=== PATIENT | female | born 1955 | race Caucasian/White ===

== ENCOUNTER 2019-11-02 12:15 | Outpatient (CLI) | payer BC ==
--- NOTE | 2019-11-02 13:52 | MRI ---
MRI CERVICAL SPINE WITHOUT CONTRAST: 11/02/19 INDICATIONS: Cervical spinal stenosis. Cervical pain. FINDINGS: Cervical vertebrae maintain normal height and alignment. Cervical vertebral body signal is normal. Th ere are degenerative disc changes at all levels with mild loss of disc space throughout the cervical spine. Small anterior osteophytes in the cervical vertebrae. Posterior spondylosis at all levels as d escribed below. C2-3: Minimal disc bulge and spondylosis. No significant abnormality. C3-4: Posterior disc bulge and spondylosis flatten the thecal sac and efface the anterior subarachnoi d space. No cord impingement. Mild bilateral foraminal narrowing, slightly more pronounced on the rig ht. C4-5: Disc bulge and spondylosis that flatten the thecal sac and efface the anterior subarachnoid spa ce. No cord impingement or central canal stenosis. Mild left foraminal narrowing due to facet and unc inate hypertrophy. C5-6: Disc bulge and spondylosis is slightly more prominent. These changes abut the anterior cord at this level. Mild right foraminal encroachment due to facet and uncinate hypertrophy. C6-7: Slight anterolisthesis. Posterior disc bulge and spondylosis flatten the thecal sac and efface the anterior subarachnoid space. No cord impingement or central canal stenosis. No evidence of signif icant foraminal stenosis. C7-T1: Mild anterolisthesis. Posterior disc bulge and spondylosis flatten the thecal sac and efface the anterior subarachnoid space. No cord impingement. No central canal or foraminal stenosis. Cervical cord signal appears normally maintained. IMPRESSION: Posterior disc bulge and spondylitic changes are seen throughout as described above. Findings are mor e pronounced at C5-6 where they impinge on the anterior cord. Mild foraminal encroachment is seen as described above. POS: AH
--- NOTE | 2019-11-02 14:16 | MRI ---
MRI thoracic spine noncontrast: 11/02/2019 HISTORY: 63 year old female with mid back pain COMPARISON: None FINDINGS: There is an at least mild lateral curvature. Vertebral body heights are maintained. No major bone marrow signal abnormality. Thoracic spinal cord is normal in caliber. No syringohydromyelia. Scattered hyperintense intramedullary signal on T2 WI seen. Most of these probably represent artifact, unless the patient has myelopathy. At lower T9 and T9-10 level, 2 tiny bilateral paracentral foci of hyperintense signal on axial T2 WI (axial image 30 of 45, series 8). No high-grade central spinal canal stenosis, extrinsic cord impingement, nerve root impingement, or h igh-grade neural foraminal stenosis, at any level. Left-sided hemangioma of bone at T4 vertebral body. Mild disc space narrowing at several levels in mid thoracic spine. Small central disc protrusions at T7-8, T8-9, and T9-T10. Small left-central disc protrusion at T10-11 approaching left ventral cord surface. Additional tiny Disc protrusions scattered elsewhere at other levels. No pathology of perivertebral spaces identified. IMPRESSION: 1.) Mild thoracic spondylosis and mild lateral curvature. 2) bilateral paracentral tiny apparent intramedullary signal abnormalities at T9: Tiny cortical infar ctions of indeterminate age versus artifact.
== END 2019-11-02 12:16 | disposition home or self-care (01) ==
LOC: BICMRI 12:15
PROVIDERS: ATTEND Anesthesiology Pain Medicine
DX: M48.02 Spinal stenosis, cervical region (principal); M48.04 Spinal stenosis, thoracic region
CPT/HCPCS: 72141; 72146

== ENCOUNTER 2020-06-11 17:39 | Inpatient (IN) | payer BC ==
[~2020-06-11 17:39] MED LIST: Heparin 10,000 UNITS/ 10 ML VIAL ONE; Iopamidol 370 76% 100 ML VIAL ONE; Sodium Chloride 0.9% 1,000 ML BAG ONE
--- NOTE | 2020-06-11 18:10 | RAD ---
Exam: Chest one view HISTORY:Chest pain Comparison: 12/09/2008 FINDINGS: Cardiac silhouette: Normal Aorta: Unremarkable Pulmonary vessels: Normal Costophrenic angles: Clear LUNGS: No masses or consolidation. Pneumothorax: None Osseous abnormalities: None IMPRESSION: No acute cardiopulmonary process.
[2020-06-11 18:38] LABS: #Basophils 0.1 thou/uL (0.0-0.2); #Eosinphils 0.1 thou/uL (0.0-0.7); #Lymphocytes 2.8 thou/uL (1.20-3.40); #Monocytes 0.8 thou/uL (0.11-0.59); #Neutrophils 6.8 thou/uL (1.40-6.50); %Eosinophils 1.3 % (0.0-10.0); %Lymphocytes 26.2 % (21.0-51.0); %Monocytes 7.7 % (0.0-10.0); %Neutrophils 63.7 % (42.0-75.0); Mean Corpuscular HGB CONC 34.7 g/dL (32.0-36.0); Mean Corpuscular Hemoglobin 30.9 pg (27.0-31.0); Mean Corpuscular Volume 89.1 fL (78.0-98.0); Mean Platelet Volume 7.6 fL (7.4-10.4); Platelet Count 314 thou/uL (130-400); RBC Distribution Width 12.1 % (11.5-14.5); Red Blood Cell (RBC) Count 3.55 mill/uL (4.20-5.40); White Blood Cell (WBC) Count 10.7 thou/uL (4.8-10.8)
[2020-06-11 18:55] LABS: ALT (SGPT) 17 U/L (8-55); AST (SGOT) 45 U/L (5-34); Albumin 3.9 g/dL (3.4-4.8); Alkaline Phosphatase 86 U/L (40-110); Anion Gap 10 mmol/L (10-20); BUN (Urea Nitrogen) 12 mg/dL (9.8-20.1); Bilirubin, Total 0.3 mg/dL (0.2-1.2); Calc. Creatinine Clearance 0 mL/min (70-130); Calcium 8.5 mg/dL (7.8-10.44); Carbon Dioxide 24 mmol/L (23-31); Chloride 108 mmol/L (98-107); Glucose 88 mg/dL (80-115); Lipase 31 U/L (8-78); Potassium 3.4 mmol/L (3.5-5.1); Protein, Total 6.9 g/dL (5.8-8.1); Sodium 139 mmol/L (136-145)
[2020-06-11] MEDS ORDERED: Aspirin Chewable 81 MG TAB ONE (19:28)
[2020-06-11] MEDS ORDERED: Nitroglycerin 0.4 MG TAB 1 EACH ONE (19:28)
[2020-06-11 19:30] LABS: CKMB 27.9 ng/mL (0-6.6)
[2020-06-11] MEDS ORDERED: Lidocaine 1% (PF) 30 ML VIAL ONE (19:51)
[2020-06-11 19:54] LABS: Prothrombin Time 13.1 sec (12.0-14.7)
[2020-06-11] MEDS ORDERED: Midazolam HCl 2 mg/2 ml Vial ONE (20:11)
[2020-06-11] MEDS ORDERED: Fentanyl 100 MCG/2 ML VIAL ONE (20:11)
[2020-06-11] MEDS ORDERED: Morphine 2 MG/ML VIAL SLOW IVP PRN (20:36)
[2020-06-11] MEDS ORDERED: cloNIDine 0.1 MG TAB PO PRN (20:36)
[2020-06-11] MEDS ORDERED: traMADol HCl 50 MG TAB PO PRN (20:36)
[2020-06-11] MEDS ORDERED: Milk Of Magnesia 30 ML UDCUP PO PRN (20:36)
[2020-06-11] MEDS ORDERED: Mag-Al 1200 mg/1200 mg/30 ML UDCUP PO PRN (20:36)
[2020-06-11] MEDS ORDERED: Zolpidem Tartrate 5 MG TAB PO PRN (20:36)
[2020-06-11] MEDS ORDERED: Clopidogrel Bisulfate 300 MG TAB PO SCH (21:00)
[2020-06-11] MEDS ORDERED: Potassium Chloride 20 MEQ TAB PO SCH (21:15)
[2020-06-11] MEDS ORDERED: Sodium Chloride 0.9% 500 ML IV SCH (21:15)
[2020-06-11] MEDS: Nitroglycerin 0.4 MG TAB (25 Tab Bottle) SL PRN ×2 (21:18→21:23)
--- NOTE | 2020-06-11 21:19 | HP ---
CHIEF COMPLAINT: Chest pain. HISTORY OF PRESENT ILLNESS: Ms. Gonzalez is a pleasant 64-year-old white female, who comes to the hospital for chest pain. She started having chest pain yesterday at 4 p.m. She hoped that it would just go away as she has had reflux in the past and it just would not go away, kept going. She decided to go to sleep yesterday hoping that it was going to get better. When she woke up, she continued to have chest pain throughout the day, decided to come into the ER this evening. Initial EKG was unremarkable, but she continued to have ongoing chest pain, so a troponin was drawn and it was at 7, so Cardiology was called immediately. On my evaluation, Ms. Gonzalez continued to have chest pain, so she was taken emergently to the catheterization lab. She was found to have an occluded distal first OM. The first OM was decent size initially, but at the level of the obstruction, it was a very small artery, probably 1 to 1.5 mm and this was left alone. At the time of the image during the catheterization, Mrs. Gonzalez was already chest pain free and was a lot better. Her blood pressure initially was in the 190s over 100s in the ER. Once the chest pain got better, she was down to the 160s over 80s. She is now pain free and on the way up to be admitted to the telemetry floor. PAST MEDICAL HISTORY: 1. Glaucoma. 2. Migraine headaches. 3. Anxiety and depression. 4. Hypertension, not treated. PAST SURGICAL HISTORY: 1. Gastric bypass, she has lost about 55 pounds. 2. x2 in the past. 3. Hysterectomy. 4. Cataract surgery in the right eye last week, she was scheduled to have cataract surgery in left eye. 5. Breast reduction and lift after gastric bypass and weight loss. 6. Abdominal skin removal after gastric bypass. OUTPATIENT MEDICATIONS: 1. Citalopram 40 mg a day. 2. Estradiol 2 mg a day. 3. Topiramate 50 mg a day. 4. Ophthalmic prednisolone. ALLERGIES: MACROBID. SOCIAL HISTORY: Smoked as a teenager, but none for many many years. Social alcohol use. Used marijuana as a teenager as well. Nothing in the recent past. FAMILY HISTORY: Noncontributory. REVIEW OF SYSTEMS: A 12-point review of systems was done and was found to be negative other than stated in the history of present illness. PHYSICAL EXAMINATION: VITAL SIGNS: Temperature 97.2, pulse 80, respiratory rate 18, saturating 98% on room air, blood pressure 158/72. GENERAL: Awake, alert, and oriented x3, in no distress. HEENT: Normocephalic and atraumatic. NECK: Supple. LUNGS: Clear. CARDIOVASCULAR: S1, S2. No S3 or S4. No murmurs or rubs. ABDOMEN: Soft. Positive bowel sounds. EXTREMITIES: No edema. SKIN: Warm and dry. LABORATORY DATA: Laboratory work was reviewed. White count of 10, hemoglobin 11, hematocrit 31, platelet count of 214. Coags were normal. Chemistry with a sodium of 139, potassium 3.4, chloride 108, carbon dioxide 24, anion gap of 10, BUN of 12, creatinine 1.4 with GFR of 37, glucose of 88. CK-MB on admission was 27 and troponin was 7.5, albumin of 3.9, lipase of 31. EKG was reviewed. Nonspecific ST changes in the inferior leads. Chest x-ray was reviewed. ASSESSMENT AND PLAN: 1. Ejk-[id number] myocardial infarction. 2. Ongoing chest pain. 3. Hypertension, untreated. 4. Glaucoma. PLAN: 1. Heart catheterization showed an occluded OM1 distally, very small vessel at the distal level, too small for intervention. We will treat this medically. We will keep her on full anticoagulation with Lovenox subcu, the first dose to be given 2 hours after hemostasis which was at 8:30, so first dose between 10:30 and 11 and then b.i.d. for 48 hours. 2. Echocardiogram to be done tomorrow. 3. We will start on Plavix and aspirin for dual antiplatelet therapy. 4. We will start statin, beta racheal, and XANDER inhibitor. 5. PPI for stress ulcer prophylaxis. 6. Already on full-dose Lovenox for DVT prophylaxis. 7. COVID PCR will be sent. 8. Full code. 9. Disposition, pending clinical evolution. Job ID: [id number]
[2020-06-11] MEDS: Acetaminophen/Codeine 30-300mg Tablet PO PRN (21:29)
[2020-06-11 22:30] VITALS: BMI 26.3
[2020-06-11 22:55] LABS: CKMB 20.4 ng/mL (0-6.6); Critical Call CKMB RESULT DECREASING
--- NOTE | 2020-06-11 22:55 | PDOC.HHP ---
Hospitalist RENETTA Chest pain History of Present Illness: This is a 64-year-old female patient with a history of hypertension who presents to the ED on account of chest pain. Patient notes having had chest pain 2 days ago prior to going to bed which persisted when she woke up from bed. With persistence of pain she came to the ED for further evaluation. Pain was about 10/10 intensity initially mainly on the left side nonradiating. Associated with diuresis and worsened with activity. She denied any shortness of breath or palpitations. On presentation blood pressure was 173/92, pulse 70, respiration 19, temperature 98.4 and saturating 99 on room air. Labs showed hemoglobin of 11.0 potassium 3.4, creatinine 1.44 and troponin was elevated at 7.56. Chest x-ray showed no acute cardiopulmonary process. Cardiology was consulted patient was sent to the [facility] and was noted to have 2 small vessel disease too small for intervention. Decision was made to treat conservatively on anticoagulation with Lovenox. Allergies/Adverse Reactions: Allergy/AdvReac Type Severity Reaction Status Date / Time nitrofurantoin Allergy Verified 06/11/20 21:43 [From Macrobid] Home Medications: Medication Instructions Recorded Confirmed Type Citalopram [CeleXA] 40 mg PO DAILY 06/11/20 06/11/20 History Estradiol 2 mg PO DAILY 06/11/20 06/11/20 History Levothyroxine Sodium [Euthyrox] 50 mcg PO DAILY 06/11/20 06/11/20 History Topiramate 50 mg PO DAILY 06/11/20 06/11/20 History prednisoLONE Acetate [Econopred 1 drop R EYE ASDIR 06/11/20 06/11/20 History Plus 1% Opth Susp] Past History: Past medical history: Hypertension, anxiety and depression, migraines, glaucoma Past surgical history: Gastric bypass, section, hysterectomy, cataract surgery, breast reduction Family history: Diabetes mellitus Social history: Denies alcohol use, smoking or illicit drug use. Hospitalist RENETTA CARBALLO Constitutional: denies: fever, chills, sweats, weakness, malaise Respiratory: denies: cough, shortness of breath, hemoptysis Cardiovascular: reports: chest pain, orthopnea, edema. denies: palpitations Gastrointestinal: denies: nausea, vomiting, abdominal pain, constipation Genitourinary: denies: dysuria, frequency, incontinence Neurological: denies: weakness, numbness, incoordination, change in speech All other systems reviewed; all pertinent +/- noted in HPI/Subj Hospitalist Exam Vitals: Vital Signs (12 hours) Temp Pulse Resp BP Pulse Ox 06/11/20 20:15 98.1 F 61 18 186/81 H 100 Weight Weight 153 lb 3.2 oz General Appearance: awake alert General - other findings: In no acute distress Eye: PERRL, anicteric sclera ENT: normocephalic atraumatic Heart: RRR, no murmur, no gallops, no rubs Respiratory: CTAB, no wheezes, no rales, no ronchi Gastrointestinal: soft, non-tender, non-distended, normal bowel sounds Extremities: no cyanosis, no clubbing, no edema Neurological: cranial nerve grossly intact, no weakness, no focal deficits Musculoskeletal: normal tone, normal strength Psychiatric: normal affect, normal behavior, A&O x 3 Hospitalist Results Result Diagrams: 06/12/20 02:22 06/12/20 02:22 Lab results: Laboratory Last Values WBC 10.7 thou/uL (4.8-10.8) 06/11/20 18:18 RBC 3.55 mill/uL (4.20-5.40) L 06/11/20 18:18 Hgb 11.0 g/dL (12.0-16.0) L 06/11/20 18:18 Hct 31.6 % (36.0-47.0) L 06/11/20 18:18 MCV 89.1 fL (78.0-98.0) 06/11/20 18:18 MCH 30.9 pg (27.0-31.0) 06/11/20 18:18 MCHC 34.7 g/dL (32.0-36.0) 06/11/20 18:18 RDW 12.1 % (11.5-14.5) 06/11/20 18:18 Plt Count 314 thou/uL (130-400) 06/11/20 18:18 MPV 7.6 fL (7.4-10.4) 06/11/20 18:18 Neutrophils % 63.7 % (42.0-75.0) 06/11/20 18:18 Lymphocytes % 26.2 % (21.0-51.0) 06/11/20 18:18 Monocytes % 7.7 % (0.0-10.0) 06/11/20 18:18 Eosinophils % 1.3 % (0.0-10.0) 06/11/20 18:18 Basophils % 1.0 % (0.0-1.0) 06/11/20 18:18 Neutrophils # 6.8 thou/uL (1.40-6.50) H 06/11/20 18:18 Lymphocytes # 2.8 thou/uL (1.20-3.40) 06/11/20 18:18 Monocytes # 0.8 thou/uL (0.11-0.59) H 06/11/20 18:18 Eosinophils # 0.1 thou/uL (0.0-0.7) 06/11/20 18:18 Basophils # 0.1 thou/uL (0.0-0.2) 06/11/20 18:18 PT 13.1 sec (12.0-14.7) 06/11/20 18:17 INR 1.0 06/11/20 18:17 Sodium 139 mmol/L (136-145) 06/11/20 18:18 Potassium 3.4 mmol/L (3.5-5.1) L 06/11/20 18:18 Chloride 108 mmol/L (98-107) H 06/11/20 18:18 Carbon Dioxide 24 mmol/L (23-31) 06/11/20 18:18 Anion Gap 10 mmol/L (10-20) 06/11/20 18:18 BUN 12 mg/dL (9.8-20.1) 06/11/20 18:18 Creatinine 1.44 mg/dL (0.6-1.1) H 06/11/20 18:18 Estimated GFR (MDRD) 37 06/11/20 18:18 Glucose 88 mg/dL (80-115) 06/11/20 18:18 Calcium 8.5 mg/dL (7.8-10.44) 06/11/20 18:18 Total Bilirubin 0.3 mg/dL (0.2-1.2) 06/11/20 18:18 AST 45 U/L (5-34) H 06/11/20 18:18 ALT 17 U/L (8-55) 06/11/20 18:18 Alkaline Phosphatase 86 U/L (40-110) 06/11/20 18:18 CK-MB (CK-2) 27.9 ng/mL (0-6.6) H* 06/11/20 18:18 Troponin I 7.567 ng/mL (< 0.028) H* 06/11/20 18:18 Serum Total Protein 6.9 g/dL (5.8-8.1) 06/11/20 18:18 Albumin 3.9 g/dL (3.4-4.8) 06/11/20 18:18 Globulin 3.0 g/dL (2.4-3.5) 06/11/20 18:18 Albumin/Globulin Ratio 1.3 g/dL (1.2-2.2) 06/11/20 18:18 Lipase 31 U/L (8-78) 06/11/20 18:18 Hospitalist H&P A/P Plan: This is a 64-year-old female patient history of hypertension who presents with chest pain and is status post cardiac catheterization. She has coronary vascular occlusion not amenable to stentingalignment we will proceed with medical management. Coronary artery disease Status post cardiac catheterization without stenting. Proceed with medical monitor on Lovenox as directed by cardiology Will continue DAPT and statin Monitor on 7 Appreciate cardiology input. Hypertension Blood pressure stable Resume medications when stable. CODE STATUSfull code VT prophylaxistherapeutic on Lovenox
[2020-06-11 22:56] LABS: Troponin I 7.739 ng/mL (< 0.028)
[2020-06-11] MEDS ORDERED: Enoxaparin Sodium 80 MG/0.8 ML SYRINGE SC SCH (23:00)
[2020-06-11] MEDS: Atorvastatin Calcium 40 MG TAB PO SCH (23:07)
[2020-06-12 02:32] LABS: #Basophils 0.1 thou/uL (0.0-0.2); #Eosinphils 0.2 thou/uL (0.0-0.7); #Lymphocytes 2.8 thou/uL (1.20-3.40); #Monocytes 0.6 thou/uL (0.11-0.59); #Neutrophils 5.6 thou/uL (1.40-6.50); %Basophils 0.8 % (0.0-1.0); %Eosinophils 1.6 % (0.0-10.0); %Lymphocytes 30.5 % (21.0-51.0); %Monocytes 6.6 % (0.0-10.0); %Neutrophils 60.5 % (42.0-75.0); Hemoglobin 10.1 g/dL (12.0-16.0); Mean Corpuscular HGB CONC 33.6 g/dL (32.0-36.0); Mean Corpuscular Hemoglobin 29.9 pg (27.0-31.0); Mean Corpuscular Volume 89.1 fL (78.0-98.0); Mean Platelet Volume 7.4 fL (7.4-10.4); Platelet Count 283 thou/uL (130-400); RBC Distribution Width 12.1 % (11.5-14.5); Red Blood Cell (RBC) Count 3.38 mill/uL (4.20-5.40); White Blood Cell (WBC) Count 9.3 thou/uL (4.8-10.8)
[2020-06-12 02:55] LABS: Critical Call Chem Troponin I RESULT DECREASING; Troponin I 6.559 ng/mL (< 0.028)
[2020-06-12 02:56] LABS: ALT (SGPT) 14 U/L (8-55); AST (SGOT) 37 U/L (5-34); Albumin 3.4 g/dL (3.4-4.8); Alkaline Phosphatase 81 U/L (40-110); Anion Gap 12 mmol/L (10-20); BUN (Urea Nitrogen) 11 mg/dL (9.8-20.1); Bilirubin, Total 0.4 mg/dL (0.2-1.2); CKMB 15.9 ng/mL (0-6.6); Calc. Creatinine Clearance 54 mL/min (70-130); Calcium 8.2 mg/dL (7.8-10.44); Carbon Dioxide 19 mmol/L (23-31); Cardiac Risk 2.2 (Less than 4.5); Chloride 112 mmol/L (98-107); Cholesterol 173 mg/dl (< 200 Desired); Critical Call CKMB RESULT DECREASING; Globulin 2.6 g/dL (2.4-3.5); Glucose 84 mg/dL (80-115); HDL Cholesterol 78 mg/dL (>60 Neg Risk); LDL Cholesterol, Calculated 81 mg/dL; Potassium 4.4 mmol/L (3.5-5.1); Sodium 139 mmol/L (136-145); Triglycerides 70 mg/dL (Less than 150)
[2020-06-12] MEDS: Nitroglycerin 0.4 MG TAB (25 Tab Bottle) SL PRN ×3 (03:02→22:25)
[2020-06-12] MEDS: Acetaminophen/Codeine 30-300mg Tablet PO PRN ×3 (03:06→22:25)
[2020-06-12 03:19] LABS: Free T4 (Free Thyroxine) 1.01 ng/dL (0.70-1.48); Thyroid Stimulating Hormone 3.9276 uIU/mL (0.35-4.94)
[2020-06-12] MEDS: prednisoLONE 1% Ophth Susp 5 ml Bottle R EYE SCH ×4 (08:25→20:28)
[2020-06-12] MEDS: Clopidogrel Bisulfate 75 MG TAB PO SCH (08:43)
[2020-06-12] MEDS: Aspirin Chewable 81 MG TAB PO SCH (08:43)
[2020-06-12] MEDS: Enoxaparin Sodium 80 MG/0.8 ML SYRINGE SC SCH ×2 (08:45→20:28)
[2020-06-12] MEDS: Carvedilol 3.125 MG TAB PO SCH ×2 (08:47→16:48)
[2020-06-12] MEDS ORDERED: Citalopram 20 MG TAB PO SCH (09:00)
[2020-06-12] MEDS ORDERED: Lisinopril 2.5 MG TAB PO SCH ×2 (09:00→16:00)
[2020-06-12] MEDS ORDERED: Levothyroxine Sodium 50 MCG TAB PO SCH (09:45)
[2020-06-12 12:49] LABS: SARS-CoV-2 PCR by NAA Not Detected (NotDetected)
--- NOTE | 2020-06-12 15:14 | PDOC.CPN ---
- Subjective Date: 06/12/20 Time: 15:13 Interval history: She is doing well no more chest pain since yesterday. - Review of Systems General: denies: fever/chills, weight/appetite/sleep changes, night sweats, fatigue Respiratory: denies: cough, congestion, shortness of breath, exercise intolerance Cardiovascular: denies: chest pain, palpitation, edema, paroxysmal nocturnal dyspnea, orthopnea Gastrointestinal: denies: nausea, vomiting, diarrhea, constipation, abd pain, GI bleeding Musculoskeletal: denies: pain, tenderness, stiffness, swelling, arthriti s/arthralgias Neurological: denies: numbness, syncope, seizure, weakness - Objective Allergies/Adverse Reactions: Allergies Allergy/AdvReac Type Severity Reaction Status Date / Time nitrofurantoin Allergy Verified 06/11/20 21:43 [From Macrobid] Visit Medications: Current Medications Acetaminophen/Codeine Phosphate (Acetaminophen/Codeine 30-300mg Tablet) 1 tab PO Q4H PRN PRN Reason: Mild Pain (1-3) Last Admin: 06/12/20 03:06 Dose: 1 tab Documented by: Al Hydroxide/Mg Hydroxide (Mag-Al 1200 Mg/1200 Mg/30 Ml Udcup) 30 ml PO Q3H PRN PRN Reason: Indigestion Aspirin (Aspirin Chewable 81 Mg Tab) 81 mg PO DAILY [facility] Last Admin: 06/12/20 08:43 Dose: 81 mg Documented by: Atorvastatin Calcium (Atorvastatin Calcium 40 Mg Tab) 40 mg PO [facility] Last Admin: 06/11/20 23:07 Dose: 40 mg Documented by: Carvedilol (Carvedilol 3.125 Mg Tab) 3.125 mg PO BID-[facility] Last Admin: 06/12/20 08:47 Dose: Not Given Documented by: Citalopram Hydrobromide (Citalopram 20 Mg Tab) 40 mg PO DAILY [facility] Clonidine (Clonidine 0.1 Mg Tab) 0.1 mg PO Q2H PRN PRN Reason: SBP GREATER THAN 160 Last Admin: 06/12/20 07:00 Dose: 0.1 mg Documented by: Clopidogrel Bisulfate (Clopidogrel Bisulfate 75 Mg Tab) 75 mg PO DAILY [facility] Last Admin: 06/12/20 08:43 Dose: 75 mg Documented by: Enoxaparin Sodium (Enoxaparin Sodium 80 Mg/0.8 Ml Syringe) 70 mg SC 0900,2100 [facility] Last Admin: 06/12/20 08:45 Dose: 70 mg Documented by: Levothyroxine Sodium (Levothyroxine Sodium 50 Mcg Tab) 50 mcg PO 0600 [facility] Lisinopril (Lisinopril 2.5 Mg Tab) 2.5 mg PO DAILY [facility] Last Admin: 06/12/20 08:43 Dose: 2.5 mg Documented by: Magnesium Hydroxide (Milk Of Magnesia 30 Ml Udcup) 30 ml PO Q12H PRN PRN Reason: Constipation Morphine Sulfate (Morphine 2 Mg/Ml Vial) 2 mg SLOW IVP Q4H PRN PRN Reason: Moderate Chest Pain (4-6) Nitroglycerin (Nitroglycerin 0.4 Mg Tab (25 Tab Bottle)) 0.4 mg SL Q5MIN PRN PRN Reason: Chest Pain Last Admin: 06/12/20 03:02 Dose: 1 tab Documented by: Pantoprazole Sodium (Pantoprazole 40 Mg Tab) 40 mg PO DAILY [facility] Last Admin: 06/12/20 08:43 Dose: 40 mg Documented by: Prednisolone Acetate (Prednisolone 1% Ophth Susp 5 Ml Bottle) 1 drop R EYE QID [facility] Stop: 06/13/20 23:00 Last Admin: 06/12/20 08:25 Dose: Not Given Documented by: Prednisolone Acetate (Prednisolone 1% Ophth Susp 5 Ml Bottle) 1 drop R EYE TID [facility] Tramadol HCl (Tramadol Hcl 50 Mg Tab) 50 mg PO Q6H PRN PRN Reason: Moderate Pain (4-6) Zolpidem Tartrate (Zolpidem Tartrate 5 Mg Tab) 5 mg PO HSPRN PRN PRN Reason: Insomnia Vital Signs & Weight: Vital Signs Temp Pulse Pulse Pulse Resp BP BP 06/12/20 08:53 58 L 64 141/81 H 06/12/20 08:43 60 141/81 H 06/12/20 07:00 177/87 H 06/12/20 04:00 98.8 F 62 18 BP BP Pulse Ox Pulse Ox 06/12/20 08:53 143/71 H 99 06/12/20 08:43 06/12/20 07:00 06/12/20 04:00 177/87 H 97 Weight 153 lb 3.2 oz - Physical Exam General: alert & oriented x3 HEENT: mucus membranes moist Neck: supple neck Cardiac: regular rate and rhythm Lungs: clear to auscultation Neuro: grossly intact Abdomen: active bowel sounds Extremities: no edema Skin: clear Musculoskeletal: no pain - Labs Result Diagrams: 06/12/20 02:22 06/12/20 02:22 Troponin/CKMB CK-MB (CK-2) 15.9 ng/mL (0-6.6) H* 06/12/20 02:22 Troponin I 6.559 ng/mL (< 0.028) H* 06/12/20 02:22 - Telemetry Sinus rhythms and dysrhythmias: sinus rhythm - Assessment/Plan Assessment/Plan: 1. NSTEMI 2. Occluded small OM2 3. Normal LV function on LV gram 4. HTN PLAN: - Will need full anticoagulation for 48 hrs total - Echo pending. - Continue ASA/statin/Plavix/ACEI/BB. - Will up titrate ACEI for better BP control.
--- NOTE | 2020-06-12 15:42 | PDOC.HOSPP ---
- Subjective Encounter Date: 06/12/20 Subjective: Patient did report a level 2 chest pain that resolved with nitroglycerin but this gave her a headache. - Objective Vital Signs & Weight: Vital Signs (12 hours) Temp Pulse Pulse Pulse Resp BP BP 06/12/20 08:53 58 L 64 141/81 H 06/12/20 08:43 60 141/81 H 06/12/20 07:00 177/87 H 06/12/20 04:00 98.8 F 62 18 BP BP Pulse Ox Pulse Ox 06/12/20 08:53 143/71 H 99 06/12/20 08:43 06/12/20 07:00 06/12/20 04:00 177/87 H 97 Weight Weight 153 lb 3.2 oz Result Diagrams: 06/12/20 02:22 06/12/20 02:22 Hospitalist ROS - Medication Medications: Active Medications Generic Name Dose Route Start Last Admin Trade Name Freq PRN Reason Stop Dose Admin Acetaminophen/Codeine Phosphate 1 tab 06/11/20 20:36 06/12/20 15:30 Acetaminophen/Codeine 30-300mg Tablet PO 1 tab Q4H PRN Administration Mild Pain (1-3) Aspirin 81 mg 06/12/20 09:00 06/12/20 08:43 Aspirin Chewable 81 Mg Tab PO 81 mg DAILY [facility] Administration Atorvastatin Calcium 40 mg 06/11/20 21:00 06/11/20 23:07 Atorvastatin Calcium 40 Mg Tab PO 40 mg HS [facility] Administration Carvedilol 3.125 mg 06/12/20 08:00 06/12/20 08:47 Carvedilol 3.125 Mg Tab PO Not Given BID- [facility] Clonidine 0.1 mg 06/11/20 20:36 06/12/20 07:00 Clonidine 0.1 Mg Tab PO 0.1 mg Q2H PRN Administration SBP GREATER THAN 160 Clopidogrel Bisulfate 75 mg 06/12/20 09:00 06/12/20 08:43 Clopidogrel Bisulfate 75 Mg Tab PO 75 mg DAILY [facility] Administration Enoxaparin Sodium 70 mg 06/12/20 09:00 06/12/20 08:45 Enoxaparin Sodium 80 Mg/0.8 Ml Syringe SC 70 mg 0900,2100 [facility] Administration Nitroglycerin 0.4 mg 06/11/20 20:36 06/12/20 15:18 Nitroglycerin 0.4 Mg Tab (25 Tab Bottle) SL 1 tab Q5MIN PRN Administration Chest Pain Pantoprazole Sodium 40 mg 06/12/20 09:00 06/12/20 08:43 Pantoprazole 40 Mg Tab PO 40 mg DAILY [facility] Administration Prednisolone Acetate 1 drop 06/12/20 09:00 06/12/20 15:18 Prednisolone 1% Ophth Susp 5 Ml Bottle R EYE 06/13/20 23:00 1 drop QID [facility]I Administration Hospitalist Exam Vitals: Vital Signs (12 hours) Temp Pulse Pulse Pulse Resp BP BP 06/12/20 08:53 58 L 64 141/81 H 06/12/20 08:43 60 141/81 H 06/12/20 07:00 177/87 H 06/12/20 04:00 98.8 F 62 18 BP BP Pulse Ox Pulse Ox 06/12/20 08:53 143/71 H 99 06/12/20 08:43 06/12/20 07:00 06/12/20 04:00 177/87 H 97 Weight Weight 153 lb 3.2 oz General Appearance: NAD Eye: PERRL ENT: normocephalic atraumatic Neck: supple, symmetric Heart: RRR, no murmur Respiratory: CTAB, no wheezes Gastrointestinal: soft, non-tender, non-distended Extremities: no cyanosis, no clubbing, no edema Skin: normal turgor Neurological: cranial nerve grossly intact, normal sensation to touch Hosp A/P (1) NSTEMI (non-ST elevated myocardial infarction) Code(s): I21.4 - NON-ST ELEVATION (NSTEMI) MYOCARDIAL INFARCTION Status: Acute (2) Hypertension Code(s): I10 - ESSENTIAL (PRIMARY) HYPERTENSION Status: Acute (3) Hyperlipidemia Code(s): E78.5 - HYPERLIPIDEMIA, UNSPECIFIED Status: Acute (4) Hypothyroid Code(s): E03.9 - HYPOTHYROIDISM, UNSPECIFIED Status: Acute - Plan Cardiac---- non-ST elevation TN, status post cardiac cath that showed occluded small OM2 , being managed medically with aspirin/Plavix/statin/XANDER inhibitor/beta-racheal. Continue with full dose Lovenox. We will continue statins and follow cardiology recommendation. Renal--- slight decrease in her bicarb will recheck in a.m. Endocrinology--- hypothyroidism continue levothyroxine.
[2020-06-12] MEDS: Atorvastatin Calcium 40 MG TAB PO SCH (20:28)
[2020-06-13 03:59] LABS: #Basophils 0.1 thou/uL (0.0-0.2); #Eosinphils 0.2 thou/uL (0.0-0.7); #Lymphocytes 2.7 thou/uL (1.20-3.40); #Monocytes 0.6 thou/uL (0.11-0.59); #Neutrophils 3.5 thou/uL (1.40-6.50); %Basophils 0.8 % (0.0-1.0); %Eosinophils 2.5 % (0.0-10.0); %Lymphocytes 38.6 % (21.0-51.0); Hemoglobin 9.3 g/dL (12.0-16.0); Mean Corpuscular Hemoglobin 29.6 pg (27.0-31.0); Mean Corpuscular Volume 89.7 fL (78.0-98.0); Mean Platelet Volume 7.6 fL (7.4-10.4); Platelet Count 266 thou/uL (130-400); RBC Distribution Width 12.1 % (11.5-14.5); Red Blood Cell (RBC) Count 3.15 mill/uL (4.20-5.40); White Blood Cell (WBC) Count 6.9 thou/uL (4.8-10.8)
[2020-06-13 04:17] LABS: ALT (SGPT) 13 U/L (8-55); AST (SGOT) 23 U/L (5-34); Albumin 3.2 g/dL (3.4-4.8); Alkaline Phosphatase 76 U/L (40-110); Anion Gap 10 mmol/L (10-20); BUN (Urea Nitrogen) 15 mg/dL (9.8-20.1); Bilirubin, Total 0.4 mg/dL (0.2-1.2); Calc. Creatinine Clearance 47 mL/min (70-130); Calcium 8.3 mg/dL (7.8-10.44); Carbon Dioxide 21 mmol/L (23-31); Chloride 110 mmol/L (98-107); Globulin 2.4 g/dL (2.4-3.5); Glucose 81 mg/dL (80-115); Potassium 4.3 mmol/L (3.5-5.1); Protein, Total 5.6 g/dL (5.8-8.1); Sodium 137 mmol/L (136-145)
[2020-06-13] MEDS ORDERED: Levothyroxine Sodium 50 MCG TAB PO SCH (06:00)
[2020-06-13] MEDS: prednisoLONE 1% Ophth Susp 5 ml Bottle R EYE SCH ×3 (08:22→17:07)
[2020-06-13] MEDS: Enoxaparin Sodium 80 MG/0.8 ML SYRINGE SC SCH (08:22)
[2020-06-13] MEDS: Clopidogrel Bisulfate 75 MG TAB PO SCH (08:23)
[2020-06-13] MEDS: Aspirin Chewable 81 MG TAB PO SCH (08:23)
[2020-06-13] MEDS: Carvedilol 3.125 MG TAB PO SCH ×2 (08:24→17:06)
[2020-06-13] MEDS ORDERED: Lisinopril 5 MG TAB PO SCH (09:00)
[2020-06-13] MEDS ORDERED: Citalopram 20 MG TAB PO SCH (09:00)
[2020-06-13 09:30] LABS: Hemoglobin 10.1 g/dL (12.0-16.0); Platelet Count 290 thou/uL (130-400)
--- NOTE | 2020-06-13 15:11 | PDOC.HOSPP ---
- Subjective Encounter Date: 06/13/20 Subjective: Patient did report slight chest pain yesterday night otherwise feeling. - Objective Vital Signs & Weight: Vital Signs (12 hours) Temp Pulse Pulse Pulse Resp BP BP 06/13/20 11:40 98.5 F 65 18 06/13/20 10:37 63 56 L 105/57 L 06/13/20 08:23 63 106/63 06/13/20 07:38 98.4 F 63 16 06/13/20 03:48 98 F 56 L 16 BP BP Pulse Ox Pulse Ox Pulse Ox 06/13/20 11:40 100/54 L 98 06/13/20 10:37 101/59 L 99 100 06/13/20 08:23 06/13/20 07:38 106/62 99 06/13/20 03:48 95/53 L 95 Weight Weight 153 lb 3.2 oz I&O: 06/12/20 06/13/20 06/14/20 06:59 06:59 06:59 Intake Total 960 360 Balance 960 360 Result Diagrams: 06/13/20 09:01 06/13/20 09:01 Hospitalist ROS - Medication Medications: Active Medications Generic Name Dose Route Start Last Admin Trade Name Freq PRN Reason Stop Dose Admin Acetaminophen/Codeine Phosphate 1 tab 06/11/20 20:36 06/12/20 22:25 Acetaminophen/Codeine 30-300mg Tablet PO 1 tab Q4H PRN Administration Mild Pain (1-3) Aspirin 81 mg 06/12/20 09:00 06/13/20 08:23 Aspirin Chewable 81 Mg Tab PO 81 mg DAILY XAVI Administration Atorvastatin Calcium 40 mg 06/11/20 21:00 06/12/20 20:28 Atorvastatin Calcium 40 Mg Tab PO 40 mg HS XAVI Administration Carvedilol 3.125 mg 06/12/20 08:00 06/13/20 08:24 Carvedilol 3.125 Mg Tab PO 3.125 mg BID-WM XAVI Administration Citalopram Hydrobromide 40 mg 06/13/20 09:00 06/13/20 08:23 Citalopram 20 Mg Tab PO 40 mg DAILY AXVI Administration Clonidine 0.1 mg 06/11/20 20:36 06/12/20 07:00 Clonidine 0.1 Mg Tab PO 0.1 mg Q2H PRN Administration SBP GREATER THAN 160 Clopidogrel Bisulfate 75 mg 06/12/20 09:00 06/13/20 08:23 Clopidogrel Bisulfate 75 Mg Tab PO 75 mg DAILY [facility] Administration Enoxaparin Sodium 70 mg 06/12/20 09:00 06/13/20 08:22 Enoxaparin Sodium 80 Mg/0.8 Ml Syringe SC 70 mg 0900,2100 [facility] Administration Levothyroxine Sodium 50 mcg 06/13/20 06:00 06/13/20 07:07 Levothyroxine Sodium 50 Mcg Tab PO 50 mcg 0600 [facility] Administration Lisinopril 5 mg 06/13/20 09:00 06/13/20 08:23 Lisinopril 5 Mg Tab PO 5 mg DAILY [facility] Administration Morphine Sulfate 2 mg 06/11/20 20:36 06/12/20 22:33 Morphine 2 Mg/Ml Vial SLOW IVP 2 mg Q4H PRN Administration Moderate Chest Pain (4-6) Nitroglycerin 0.4 mg 06/11/20 20:36 06/12/20 22:25 Nitroglycerin 0.4 Mg Tab (25 Tab Bottle) SL 1 tab Q5MIN PRN Administration Chest Pain Pantoprazole Sodium 40 mg 06/12/20 09:00 06/13/20 08:23 Pantoprazole 40 Mg Tab PO 40 mg DAILY [facility] Administration Prednisolone Acetate 1 drop 06/12/20 09:00 06/13/20 13:49 Prednisolone 1% Ophth Susp 5 Ml Bottle R EYE 06/13/20 23:00 1 drop QID [facility] Administration Hospitalist Exam Vitals: Vital Signs (12 hours) Temp Pulse Pulse Pulse Resp BP BP 06/13/20 11:40 98.5 F 65 18 06/13/20 10:37 63 56 L 105/57 L 06/13/20 08:23 63 106/63 06/13/20 07:38 98.4 F 63 16 06/13/20 03:48 98 F 56 L 16 BP BP Pulse Ox Pulse Ox Pulse Ox 06/13/20 11:40 100/54 L 98 06/13/20 10:37 101/59 L 99 100 06/13/20 08:23 06/13/20 07:38 106/62 99 06/13/20 03:48 95/53 L 95 Weight Weight 153 lb 3.2 oz General Appearance: NAD Eye: PERRL ENT: normocephalic atraumatic Neck: supple, symmetric Heart: RRR, no murmur, no gallops Respiratory: CTAB, no wheezes, no rales Gastrointestinal: soft, non-tender, non-distended, normal bowel sounds Extremities: no cyanosis, no clubbing, no edema Skin: normal turgor Neurological: cranial nerve grossly intact, normal sensation to touch Hosp A/P (1) NSTEMI (non-ST elevated myocardial infarction) Code(s): I21.4 - NON-ST ELEVATION (NSTEMI) MYOCARDIAL INFARCTION Status: Acute (2) Hypertension Code(s): I10 - ESSENTIAL (PRIMARY) HYPERTENSION Status: Acute (3) Hyperlipidemia Code(s): E78.5 - HYPERLIPIDEMIA, UNSPECIFIED Status: Acute (4) Hypothyroid Code(s): E03.9 - HYPOTHYROIDISM, UNSPECIFIED Status: Acute - Plan plan for today 06/12 Cardiac---- non-ST elevation IL, status post cardiac cath that showed occluded small OM2 , being managed medically with aspirin/Plavix/statin/XANDER inhibitor/beta-racheal. Continue with full dose Lovenox. We will continue statins and follow cardiology recommendation. Renal--- slight decrease in her bicarb will recheck in a.m. Endocrinology--- hypothyroidism continue levothyroxine. plan for today 06/13 Cardiac---continue current medical management, she is to undergo an echocardiogram today, I am awaiting further input form Cardiology but as per previous recommendations will continue anti-coagulation for total of 48 h. Renal--variable creatinine, will continue to monitor. Endocrinology--will continue with Levothyroxine.
[2020-06-13 15:44] VITALS: BP 119/66; TEMP 98.1
--- NOTE | 2020-06-13 18:04 | PDOC.DS.DS ---
Provider Date of Admission: 06/11/20 21:00 Date of Discharge: 06/13/20 Admitting Provider: Yusef Mcghee MD Consultations: Cardiology Primary Care Physician: Junior Burks MD Course Hospital Course: This is a 64-year-old female patient with a history of hypertension who presents to the ED on account of chest pain. Patient notes having had chest pain 2 days ago prior to going to bed which persisted when she woke up from bed. With persistence of pain she came to the ED for further evaluation. Pain was about 10/10 intensity initially mainly on the left side nonradiating. Associated with diuresis and worsened with activity. She denied any shortness of breath or palpitations. On presentation blood pressure was 173/92, pulse 70, respiration 19, temperature 98.4 and saturating 99 on room air. Labs showed hemoglobin of 11.0 potassium 3.4, creatinine 1.44 and troponin was elevated at 7.56. Chest x-ray showed no acute cardiopulmonary process. Cardiology was consulted patient was sent to [facility] and was noted to have 2 small vessel disease too small for intervention. Decision was made to treat conservatively on anticoagulation with Lovenox. She was started on medical treatment and did well, for the past 24 hours she has been hemodynamically stable. Today cardiology advised discharging her, I will provide her with prescription (aspirin/statin/Plavix/XANDER inhibitor/beta blockers) with all her new medications, she is to follow-up with cardiology as an outpatient. Resuscitation Status: 06/11/20 20:36 Resuscitation Status Routine Resuscitation Status: FULL: Full Resuscitation Lab Results: 06/13/20 09:01 06/13/20 09:01 Abnormal Lab Results - Last 48 hrs 06/11/20 18:18: Potassium 3.4 L, Chloride 108 H, Creatinine 1.44 H, AST 45 H 06/11/20 18:18: CK-MB (CK-2) 27.9 H*, Troponin I 7.567 H* 06/11/20 18:18: RBC 3.55 L, Hgb 11.0 L, Hct 31.6 L, Neutrophils # 6.8 H, Monocytes # 0.8 H 06/11/20 21:52: Troponin I 7.739 H* 06/11/20 21:52: CK-MB (CK-2) 20.4 H* 06/12/20 02:22: Troponin I 6.559 H* 06/12/20 02:22: CK-MB (CK-2) 15.9 H* 06/12/20 02:22: Chloride 112 H, Carbon Dioxide 19 L, Creatinine 1.17 H, AST 37 H 06/12/20 02:22: B-Natriuretic Peptide 191.6 H 06/12/20 02:22: RBC 3.38 L, Hgb 10.1 L, Hct 30.1 L, Monocytes # 0.6 H 06/13/20 03:39: Chloride 110 H, Carbon Dioxide 21 L, Creatinine 1.33 H, Serum Total Protein 5.6 L, Albumin 3.2 L 06/13/20 03:39: RBC 3.15 L, Hgb 9.3 L, Hct 28.2 L, Monocytes # 0.6 H 06/13/20 09:01: Creatinine 1.35 H 06/13/20 09:01: Hgb 10.1 L, Hct 30.7 L Vitals: Vital Signs (12 hours) Temp Pulse Pulse Pulse Resp BP BP 06/13/20 15:25 98.1 F 58 L 16 06/13/20 11:40 98.5 F 65 18 06/13/20 10:37 63 56 L 105/57 L 06/13/20 08:23 63 106/63 06/13/20 07:38 98.4 F 63 16 BP BP Pulse Ox Pulse Ox Pulse Ox 06/13/20 15:25 119/66 99 06/13/20 11:40 100/54 L 98 06/13/20 10:37 101/59 L 99 100 06/13/20 08:23 06/13/20 07:38 106/62 99 Weight Weight 153 lb 3.2 oz Physical Exam: The patient was seen and examined on the day of discharge. General Appearance: NAD, awake alert Eye: PERRL, anicteric sclera ENT: normocephalic atraumatic, no oropharyngeal lesions Neck: supple, symmetric, no JVD, no thyromegaly Respiratory: CTAB, no wheezes, no rales, no ronchi Cardiovascular: RRR, no murmur, no gallops, no rubs, normal peripheral pulses Gastrointestinal: soft, non-tender, non-distended Problem (1) NSTEMI (non-ST elevated myocardial infarction) Code(s): I21.4 - NON-ST ELEVATION (NSTEMI) MYOCARDIAL INFARCTION Status: Acute (2) Hypertension Code(s): I10 - ESSENTIAL (PRIMARY) HYPERTENSION Status: Acute (3) Hyperlipidemia Code(s): E78.5 - HYPERLIPIDEMIA, UNSPECIFIED Status: Acute (4) Hypothyroid Code(s): E03.9 - HYPOTHYROIDISM, UNSPECIFIED Status: Acute Plan Prescriptions: Carvedilol [Coreg] 3.125 mg PO BID-WM 30 Days #60 tab Atorvastatin Calcium [Lipitor] 40 mg PO HS #30 tab Clopidogrel Bisulfate [Plavix] 75 mg PO DAILY #30 tab Lisinopril [Zestril] 5 mg PO DAILY #30 tab Home Medications: Medication Instructions Recorded Confirmed Type Citalopram [CeleXA] 40 mg PO DAILY 06/11/20 06/11/20 History Estradiol 2 mg PO DAILY 06/11/20 06/11/20 History Levothyroxine Sodium [Euthyrox] 50 mcg PO DAILY 06/11/20 06/11/20 History Topiramate 50 mg PO DAILY 06/11/20 06/11/20 History prednisoLONE Acetate [Econopred 1 drop R EYE ASDIR 06/11/20 06/11/20 History Plus 1% Opth Susp] Aspirin Chewable [Aspirin Chewable 81 mg PO DAILY tab 06/13/20 Rx Tablet] Atorvastatin Calcium [Lipitor] 40 mg PO HS #30 tab 06/13/20 Rx Carvedilol [Coreg] 3.125 mg PO BID-WM 30 Days #60 tab 06/13/20 Rx Clopidogrel Bisulfate [Plavix] 75 mg PO DAILY #30 tab 06/13/20 Rx Lisinopril [Zestril] 5 mg PO DAILY #30 tab 06/13/20 Rx Allergies: nitrofurantoin [From Macrobid] Allergy (Verified 06/11/20 21:43) Referrals: [facility] [Outside] - 06/28/20 11:00 am GODWIN PANIAGUA MD [MD Not on Staff] - 06/15/20 3:40 pm Yusef Mcghee MD [Active] - 07/12/20 9:45 am Disposition: HOME Quality Did you prescribe antithrombotic therapy?: Yes Did you prescribe anticoagulant for A Fib/Flutter?: No Did you prescribe a statin medication?: Yes
--- NOTE | 2020-06-13 18:13 | PDOC.CPN ---
- Subjective Date: 06/13/20 Time: 18:11 Interval history: She is doing well. She has been walking around the halls without angina. She is feeling at baseline. - Review of Systems General: denies: fever/chills, weight/appetite/sleep changes, night sweats, f atigue Respiratory: denies: cough, congestion, shortness of breath, exercise intolerance Cardiovascular: denies: chest pain, palpitation, edema, paroxysmal nocturnal dyspnea, orthopnea Gastrointestinal: denies: nausea, vomiting, diarrhea, constipation, abd pain, GI bleeding Musculoskeletal: denies: pain, tenderness, stiffness, swelling, arthritis/arthralgias Neurological: denies: numbness, syncope, seizure, weakness - Objective Allergies/Adverse Reactions: Allergies Allergy/AdvReac Type Severity Reaction Status Date / Time nitrofurantoin Allergy Verified 06/11/20 21:43 [From Macrobid] Visit Medications: Current Medications Acetaminophen/Codeine Phosphate (Acetaminophen/Codeine 30-300mg Tablet) 1 tab PO Q4H PRN PRN Reason: Mild Pain (1-3) Last Admin: 06/12/20 22:25 Dose: 1 tab Documented by: Al Hydroxide/Mg Hydroxide (Mag-Al 1200 Mg/1200 Mg/30 Ml Udcup) 30 ml PO Q3H PRN PRN Reason: Indigestion Aspirin (Aspirin Chewable 81 Mg Tab) 81 mg PO DAILY [facility] Last Admin: 06/13/20 08:23 Dose: 81 mg Documented by: Atorvastatin Calcium (Atorvastatin Calcium 40 Mg Tab) 40 mg PO [facility] Last Admin: 06/12/20 20:28 Dose: 40 mg Documented by: Carvedilol (Carvedilol 3.125 Mg Tab) 3.125 mg PO BID-[facility] Last Admin: 06/13/20 17:06 Dose: 3.125 mg Documented by: Citalopram Hydrobromide (Citalopram 20 Mg Tab) 40 mg PO DAILY [facility] Last Admin: 06/13/20 08:23 Dose: 40 mg Documented by: Clonidine (Clonidine 0.1 Mg Tab) 0.1 mg PO Q2H PRN PRN Reason: SBP GREATER THAN 160 Last Admin: 06/12/20 07:00 Dose: 0.1 mg Documented by: Clopidogrel Bisulfate (Clopidogrel Bisulfate 75 Mg Tab) 75 mg PO DAILY [facility] Last Admin: 06/13/20 08:23 Dose: 75 mg Documented by: Enoxaparin Sodium (Enoxaparin Sodium 80 Mg/0.8 Ml Syringe) 70 mg SC 0900,2100 [facility] Last Admin: 06/13/20 08:22 Dose: 70 mg Documented by: Levothyroxine Sodium (Levothyroxine Sodium 50 Mcg Tab) 50 mcg PO 0600 [facility] Last Admin: 06/13/20 07:07 Dose: 50 mcg Documented by: Lisinopril (Lisinopril 5 Mg Tab) 5 mg PO DAILY [facility] Last Admin: 06/13/20 08:23 Dose: 5 mg Documented by: Magnesium Hydroxide (Milk Of Magnesia 30 Ml Udcup) 30 ml PO Q12H PRN PRN Reason: Constipation Morphine Sulfate (Morphine 2 Mg/Ml Vial) 2 mg SLOW IVP Q4H PRN PRN Reason: Moderate Chest Pain (4-6) Last Admin: 06/12/20 22:33 Dose: 2 mg Documented by: Nitroglycerin (Nitroglycerin 0.4 Mg Tab (25 Tab Bottle)) 0.4 mg SL Q5MIN PRN PRN Reason: Chest Pain Last Admin: 06/12/20 22:25 Dose: 1 tab Documented by: Pantoprazole Sodium (Pantoprazole 40 Mg Tab) 40 mg PO DAILY [facility] Last Admin: 06/13/20 08:23 Dose: 40 mg Documented by: Prednisolone Acetate (Prednisolone 1% Ophth Susp 5 Ml Bottle) 1 drop R EYE QID [facility] Stop: 06/13/20 23:00 Last Admin: 06/13/20 17:07 Dose: 1 drop Documented by: Prednisolone Acetate (Prednisolone 1% Ophth Susp 5 Ml Bottle) 1 drop R EYE TID [facility] Tramadol HCl (Tramadol Hcl 50 Mg Tab) 50 mg PO Q6H PRN PRN Reason: Moderate Pain (4-6) Zolpidem Tartrate (Zolpidem Tartrate 5 Mg Tab) 5 mg PO HSPRN PRN PRN Reason: Insomnia Vital Signs & Weight: Vital Signs Temp Pulse Pulse Pulse Resp BP BP 06/13/20 15:25 98.1 F 58 L 16 06/13/20 11:40 98.5 F 65 18 06/13/20 10:37 63 56 L 105/57 L 06/13/20 08:23 63 106/63 06/13/20 07:38 98.4 F 63 16 BP BP Pulse Ox Pulse Ox Pulse Ox 06/13/20 15:25 119/66 99 06/13/20 11:40 100/54 L 98 06/13/20 10:37 101/59 L 99 100 06/13/20 08:23 06/13/20 07:38 106/62 99 Weight 153 lb 3.2 oz - Physical Exam General: alert & oriented x3 HEENT: mucus membranes moist Neck: supple neck Cardiac: regular rate and rhythm Lungs: normal breath sounds Neuro: grossly intact Abdomen: active bowel sounds Extremities: no edema Skin: clear Musculoskeletal: no pain - Labs Result Diagrams: 06/13/20 09:01 06/13/20 09:01 Troponin/CKMB CK-MB (CK-2) 15.9 ng/mL (0-6.6) H* 06/12/20 02:22 Troponin I 6.559 ng/mL (< 0.028) H* 06/12/20 02:22 - Telemetry Sinus rhythms and dysrhythmias: sinus rhythm - Assessment/Plan Assessment/Plan: 1. NSTEMI 2. Occluded small OM2 3. Normal LV function on LV gram 4. HTN PLAN: - Continue ASA/statin/Plavix/ACEI/BB. - BP much better controlled. - May discharge home. - Follow up in the office in 2-4 weeks.
[2020-06-13] MEDS: Atorvastatin Calcium 40 MG TAB PO SCH (19:21)
[2020-06-14] MEDS ORDERED: prednisoLONE 1% Ophth Susp 5 ml Bottle R EYE SCH (09:00)
== END 2020-06-13 19:50 | disposition home or self-care (01) | DRG 282 ==
LOC: ERS 17:39 → CCL 20:10 → 2NO 21:00
PROVIDERS: ADMIT Internal Medicine Cardiovascular Disease; ATTEND Internal Medicine Cardiovascular Disease
PROC: B2111ZZ Fluoroscopy of Multiple Coronary Arteries using Low Osmolar Contrast (ICD-10-PCS; principal; 2020-06-11)
PROC: B2151ZZ Fluoroscopy of Left Heart using Low Osmolar Contrast (ICD-10-PCS; 2020-06-11)
PROC: 4A023N7 Measurement of Cardiac Sampling and Pressure, Left Heart, Percutaneous Approach (ICD-10-PCS; 2020-06-11)
DX: I21.4 Non-ST elevation (NSTEMI) myocardial infarction (principal); K21.9 Gastro-esophageal reflux disease without esophagitis; I10 Essential (primary) hypertension; G43.909 Migraine, unspecified, not intractable, without status migrainosus; F41.9 Anxiety disorder, unspecified; I25.10 Atherosclerotic heart disease of native coronary artery without angina pectoris; H40.9 Unspecified glaucoma; F32.9 Major depressive disorder, single episode, unspecified; E03.9 Hypothyroidism, unspecified; Z79.899 Other long term (current) drug therapy; Z79.890 Hormone replacement therapy; Z90.710 Acquired absence of both cervix and uterus; Z98.41 Cataract extraction status, right eye; Z98.890 Other specified postprocedural states; Z88.1 Allergy status to other antibiotic agents; Z88.8 Allergy status to other drugs, medicaments and biological substances; Z20.822 Contact with and (suspected) exposure to COVID-19
CPT/HCPCS: 36415; 71045; 80053; 80061; 82553; 83690; 83880; 84439; 84443; 84484; 85025; 85610; 87635; 93005; 93010; 93458; 93798; 96374; 99152; C1760; J1644; J1650; J2001; J2250; J2270; J3010; J7050; Q9967; U0003; U0005

== ENCOUNTER 2022-11-08 12:50 | Outpatient (CLI) | payer MEDICARE, BC ==
[~2022-11-08 12:50] MED LIST changes: -Heparin 10,000 UNITS/ 10 ML VIAL ONE; -Iopamidol 370 76% 100 ML VIAL ONE; +Magnevist 469MG/ML 20 ML VIAL ONE; -Sodium Chloride 0.9% 1,000 ML BAG ONE
== END 2022-11-08 12:51 | disposition home or self-care (01) ==
LOC: BICMRI 12:50
PROVIDERS: ATTEND Neurological Surgery
DX: M47.814 Spondylosis without myelopathy or radiculopathy, thoracic region (principal); M48.02 Spinal stenosis, cervical region; M47.812 Spondylosis without myelopathy or radiculopathy, cervical region
CPT/HCPCS: 72050; 72070; 72156; 72157; 82565